=== PATIENT | male | born 1990 | race Caucasian/White ===

== ENCOUNTER → 2020-05-05 | Outpatient (CLI) | payer OTHER ==
--- NOTE | 2020-05-05 10:05 | XR ---
Left hand HISTORY: Left hand pain 3 views left hand Distal interphalangeal joint at the fifth digit of the left hand shows probable posttraumatic change, correlate for history of trauma. No acute fracture or dislocation, irregularity noted, some hypertro phic change present at the dorsal aspect of the distal phalanx proximally. IMPRESSION: No acute normality evident. Correlate for history of trauma fifth digit.
== END | disposition home or self-care (01) ==
LOC: RADXRYALE 08:50
PROVIDERS: ATTEND Physician Assistant
DX: S63.682A Other sprain of left thumb, initial encounter (principal); M79.642 Pain in left hand

== ENCOUNTER → 2023-03-12 | Outpatient (CLI) | payer BC ==
--- NOTE | 2023-03-12 18:02 | US ---
EXAMINATION TYPE: US scrotum with doppler. Grayscale and color Doppler Duplex imaging performed of colin mitchell scrotum. DATE OF EXAM: 03/12/2023 COMPARISON: NONE CLINICAL INDICATION: Male, 32 years old with history of R86.8 ABNOR FINDINGS IN SPECIMENS MALE GENITA L ORG; Infertility issues. No pain, swelling, or other symptoms. EXAM MEASUREMENTS: TESTICLES: Right Testicle: 4.1 x 1.9 x 2.5 cm Left Testicle: 3.8 x 2.0 x 3.0 cm EPIDIDYMIS HEAD: Right Epididymis: 0.7 cm Left Epididymis: 0.6 cm. There is a 0.9 x 0.5 x 0.7cm anechoic lesion at epididymal head. Doppler performed to assess for testicular vascularity; good bilateral color flow and waveforms are s een. There is no evidence of testicular torsion. Presence of hydroceles: small bilateral hydroceles Presence of varicoceles: No IMPRESSION: 1. Left Epididymal cyst
== END | disposition home or self-care (01) ==
LOC: RADUSWWP 11:56
PROVIDERS: ATTEND Obstetrics & Gynecology Reproductive Endocrinology
DX: N50.3 Cyst of epididymis (principal); R86.8 Other abnormal findings in specimens from male genital organs
CPT/HCPCS: 76870; 93975